=== PATIENT | male | born 1955 | race Caucasian/White ===

== ENCOUNTER 2017-07-03 13:06 | Emergency (ER) | payer MEDICAID ==
[~2017-07-03] VITALS: Ht 193 cm; Wt 132.3 kg
[~2017-07-03 13:06] MED LIST: METH-360 PO
[2017-07-03] MEDS ORDERED: DICL100G15 TOP (15:14)
[2017-07-03] MEDS ORDERED: IBUP-1986 PO (15:14)
[2017-07-03 15:28] VITALS: BP 124/80
== END 2017-07-03 15:29 | disposition home or self-care (01) ==
LOC: ER 13:07
DX: M25.562 Pain in left knee (principal); M25.662 Stiffness of left knee, not elsewhere classified; G89.29 Other chronic pain; F17.200 Nicotine dependence, unspecified, uncomplicated; Z56.0 Unemployment, unspecified; Z88.2 Allergy status to sulfonamides; Z79.899 Other long term (current) drug therapy
CPT/HCPCS: 73564; 99284; A6449

== ENCOUNTER 2018-04-09 14:28 | Emergency (ER) | payer MEDICAID ==
[~2018-04-09] VITALS: Ht 193 cm; Wt 123.0 kg
[~2018-04-09 14:28] MED LIST changes: +DICL100G15 TOP; +IBUP-1986 PO
[2018-04-09 16:06] LABS: BASOPHILS % (AUTO) 0.5 % (0-1); EOSINOPHILS # (AUTO) 0.2 X10'3 (0-0.9); EOSINOPHILS % (AUTO) 2.2 % (0-6); HEMATOCRIT 40.9 % (42.0-52.0); HEMOGLOBIN 14.1 g/dl (14.0-17.9); LYMPHOCYTES # (AUTO) 1.5 X10'3 (1.1-4.8); LYMPHOCYTES % (AUTO) 20.3 % (21-51); MEAN CORPUSCULAR HEMOGLOBIN 30.2 PG (27.0-31.0); MEAN CORPUSCULAR HGB CONC 34.4 % (33.0-36.5); MEAN CORPUSCULAR VOLUME 87.8 FL (78-98); MEAN PLATELET VOLUME 8.5 FL (7.4-10.4); MONOCYTES # (AUTO) 0.5 X10'3 (0-0.9); NEUTROPHILS # (AUTO) 5.3 X10'3 (1.8-7.7); PLATELET COUNT 422 X10'3 (140-440); RED BLOOD COUNT 4.66 X10'6 (4.70-6.10); RED CELL DISTRIBUTION WIDTH 13.7 % (11.5-14.5); WHITE BLOOD COUNT 7.6 X10'3 (4.5-11.0)
[2018-04-09 16:15] VITALS: BP 122/83
[2018-04-09 16:23] LABS: ALANINE AMINOTRANSFERASE 36 U/L (12-78); ALBUMIN 4.1 G/DL (3.4-5.0); ALBUMIN/GLOBULIN RATIO 1.2 (1.1-1.5); ALKALINE PHOSPHATASE 44 IU/L (46-116); ANION GAP 11 (8-16); ASPARTATE AMINO TRANSFERASE 24 U/L (10-37); BILIRUBIN,TOTAL 0.6 MG/DL (0.1-1.0); BLOOD UREA NITROGEN 16 MG/DL (7-18); BUN/CREATININE RATIO 27.1 (5.4-32.0); CALCIUM 9.3 MG/DL (8.5-10.1); CHLORIDE 101 MMOL/L (99-107); CREATININE 0.59 MG/DL (0.60-1.10); GLUCOSE 100 MG/DL (70-104); POTASSIUM 3.9 MMOL/L (3.5-5.1); SODIUM 138 MMOL/L (135-145); TOTAL CARBON DIOXIDE 25.8 MMOL/L (24-32); TOTAL PROTEIN 7.6 G/DL (6.4-8.2); eGFR > 90 ML/MIN
[2018-04-09 16:29] LABS: CLARITY,URINE CLEAR (Clear); COLOR,URINE YELLOW (Yellow); GLUCOSE, URINE NEGATIVE (Neg); KETONES,URINE TRACE mg/dl (Neg); LEUKOCYTE ESTERASE ,URINE NEGATIVE (Neg); NITRITES, URINE NEGATIVE (Neg); OCCULT BLOOD,URINE NEGATIVE (Neg); PROTEIN,URINE TRACE mg/dl (Neg)
[2018-04-09] MEDS ORDERED: ketorolac trometh inj. 60 MG/2 ML VIAL IM ONE (16:30)
[2018-04-09 16:31] LABS: UA COLLECTION TYPE VOIDED
[2018-04-09 16:32] LABS: PHOSPHORUS 3.7 MG/DL (2.3-4.5)
[2018-04-09 16:36] LABS: BACTERIA,URINE FEW /HPF (Neg); MUCUS STRANDS MODERATE /LPF (Neg); RBC,URINE NONE SEEN /HPF (0-2); SQUAMOUS EPITHELIAL CELL,UR FEW /LPF (FEW); WBC,URINE 0-4 /HPF (0-4)
[2018-04-09 16:37] LABS: HYALINE CASTS 0-3 /LPF (NEGATIVE)
== END 2018-04-09 17:34 | disposition home or self-care (01) ==
LOC: ER 14:30
DX: R25.3 Fasciculation (principal); I10 Essential (primary) hypertension; R53.83 Other fatigue; G89.29 Other chronic pain; M19.90 Unspecified osteoarthritis, unspecified site; Z56.0 Unemployment, unspecified; Z88.2 Allergy status to sulfonamides
CPT/HCPCS: 36415; 80053; 81001; 83735; 84100; 84443; 85025; 99284

== ENCOUNTER 2018-04-23 14:30 | Emergency (ER) | payer MEDICAID ==
[~2018-04-23] VITALS: Ht 193 cm; Wt 125.0 kg
[2018-04-23] MEDS ORDERED: ibuprofen tablet 400 MG TABLET PO ONE (15:55)
[2018-04-23 21:22] VITALS: BP 145/100
== END 2018-04-23 16:10 | disposition home or self-care (01) ==
LOC: ER 14:31
DX: G89.29 Other chronic pain (principal); M54.9 Dorsalgia, unspecified; I10 Essential (primary) hypertension; M19.90 Unspecified osteoarthritis, unspecified site; Z98.890 Other specified postprocedural states; Z88.2 Allergy status to sulfonamides; Z79.899 Other long term (current) drug therapy; Z56.0 Unemployment, unspecified
CPT/HCPCS: 99284